=== PATIENT | female | born 1955 | race Caucasian/White ===

== ENCOUNTER → 2016-07-20 | Outpatient (CLI) | payer BC ==
[~2016-07-20] MED LIST: AFRIN 15 ML15 ML NS; ALLOPURINOL100 MG PO; AMOXICILLIN 8751 TAB PO; AMOXICILLIN/CLA1 TA1 PO; ASPIRIN 32325 MG/TA1 PO; ASPIRIN 32325 MG/TAB PO; COLACE 100100 MG/CAP PO; ELDERBERRY JUICE; FE-TABS325 MG PO; FLEET ENEMA 13135 ML RC; FLONASE NASAL S16 GM NS; FLONASEALLERGY NS; FOLIC ACID 40400 MCG PO; HUMALOG100 U/ML SC; HUMALOG100 U/ML SQ; HYDROCODONE BIT1 TA3 PO; LASIX 40MG TABL40 MG PO; LASIX40 MG PO; LEVEMIR100 U/ML SC; LEVEMIR100 U/ML SQ; LISINOPRIL10 MG PO; LORTAB 5/500 501 TAB PO; LOW DOSE ASPIRI81 MG PO; METAMUCIL3.4 GM/DOS PO; METFORMIN500 MG PO; MIRALAX PA17 GM/Dose PO; NAPROSYN500 MG PO; NASAL SPRAY 3030 M1 NS; NOLVADEX20 MG PO; NORCO 325 MG-7.1 TAB PO; PERCOCET 325 MG1 TA2 PO; SERTRALINE50 MG PO; STOOL SOFTENER100 M1 PO; SYMBICORT1 AE1 IH; TOUJEO300 U/ML SQ; ULTRAM 50MG TAB50 MG; ULTRAM 50MG TAB50 MG PO; VALIUM 5MG T5 MG/TAB PO; VALIUM5 MG PO; VENTOLIN0.09 MG IH; VITAMIN C PO; VITAMIN C500 MG PO; VITAMIN E28000 IU PO; ZESTRIL 10MG10 MG PO; ZOLOFT 50MG50 MG PO; ZYRTEC 10MG10 MG PO
== END ==
LOC: MC.RAD 10:40
DX: Z12.31 Encounter for screening mammogram for malignant neoplasm of breast (principal); D24.2 Benign neoplasm of left breast; D24.1 Benign neoplasm of right breast; Z85.3 Personal history of malignant neoplasm of breast

== ENCOUNTER → 2016-11-18 | Outpatient (CLI) | payer BC ==
[~2016-11-18] VITALS: Ht 162.6 cm; Wt 149.5 kg
[2016-11-18 10:22] VITALS: BP 177/87; PULSE 80
[2016-11-18 11:35] VITALS: BP 162/72; PULSE 82
== END ==
LOC: COL.RAD 11-12 10:00
DX: M51.9 Unspecified thoracic, thoracolumbar and lumbosacral intervertebral disc disorder (principal)
CPT/HCPCS: J3301

== ENCOUNTER → 2017-01-08 | Outpatient (CLI) | payer BC ==
[~2017-01-08] VITALS: Ht 162.6 cm; Wt 147.0 kg
[2017-01-08 10:25] VITALS: BP 160/91; PULSE 86
[2017-01-08 11:15] VITALS: BP 158/94; PULSE 81
== END ==
LOC: COL.RAD 10:00
DX: M51.9 Unspecified thoracic, thoracolumbar and lumbosacral intervertebral disc disorder (principal)
CPT/HCPCS: J3301; Q9965

== ENCOUNTER → 2022-08-03 | Outpatient (CLI) | payer BC, MEDICARE ==
[~2022-08-03] MED LIST changes: +DEMADEX100 MG PO
[2022-08-03 15:47] LABS: ALBUMIN 3.6 gm/dL (3.4-4.8); BILIRUBIN,TOTAL 0.9 mg/dL (0.2-1.2); CALCIUM 9.6 mg/dL (8.4-10.2); CREATININE, serum 1.33 mg/dL (0.57-1.11); POTASSIUM 4.8 mmol/L (3.5-4.5); TOTAL PROTEIN 7.4 gm/dL (6.2-8.1)
== END ==
LOC: COL.LAB 15:08
PROVIDERS: Family Medicine
DX: I50.41 Acute combined systolic (congestive) and diastolic (congestive) heart failure (principal)

== ENCOUNTER → 2022-08-07 | Outpatient (CLI) | payer BC ==
[~2022-08-07] MED LIST changes: +IMDUR 60MG60 MG/TAB PO; +LIPITOR 80MG80 MG PO; +PLAVIX 75MG TAB75 MG PO; +PROTONIX 40MG T40 MG PO; +TOPROL XL 25MG25 MG PO
== END ==
LOC: COL.VAS 12:00
DX: I50.9 Heart failure, unspecified (principal)

== ENCOUNTER → 2023-12-15 | Outpatient (CLI) | payer BC ==
[~2023-12-15] VITALS: Ht 160 cm; Wt 110.0 kg
[~2023-12-15] MED LIST changes: +DEMADEX 20MG20 M1 PO; +EX-LAX15 MG PO; +INDOCIN 25MG CA25 MG PO; +MONOKET10 MG PO; +PLAQUENIL 200M200 MG PO; +SINEX NS; +SOMA 350MG350 MG/TAB PO; +STOOL SOFTENER; +TRESIBA FL100 UNIT/1 SQ; +TRESIBA100 UNIT/1 SQ; +Triamcinolone 40 MG/ML 1 ML VIAL IJ SCH; +VICKS SINEX PO; +ZANAFLEX 4MG TAB4 MG PO; +ZANAFLEX CAPSULE4 MG PO; +ZESTRIL 20MG TA20 MG PO; +[UNRECOGNIZED DRUG - OTHER]
[2023-12-15 09:20] VITALS: BP 170/100; PULSE 77; TEMP 97.9
[2023-12-15 10:49] VITALS: BP 180/101; PULSE 76
[2023-12-15 11:09] VITALS: BP 165/77
--- NOTE | 2023-12-15 11:12 | NUR ---
PATIENT SAYS HER RIGHT LEG FEELS NUMB. SHE HAS EATEN A MUFFIN AND HAD AN ORANGE JUICE.
--- NOTE | 2023-12-15 11:41 | NUR ---
PATIENT IS NOW ABLE TO FEEL HER LEGS AND HAS DEMONSTRATED ABILITY TO TALK SEVERAL STEPS. PATIENT SAYS SHE WOULD LIKE TO LEAVE NOW. PATIENT'S IS HERE WITH HER. PATIENT SAYS THAT HER WALKER IS IN HER VEHICLE AND THAT SHE WALKS EVEN BETTER WITH HER WALKER. PATIENT TAKEN DOWN TO HER PERSONAL VEHICLE VIA WHEELCHAIR WITH ALL OF HER ITEMS AND PAPERWORK. PATIENT'S DRIVING. PATIENT ABLE TO GET INTO THE VEHICLE WITHOUT ASSISTANCE FROM NURSE OF . ALL NEEDS MET.
== END ==
LOC: COL.RAD 09:08
DX: M51.36 Other intervertebral disc degeneration, lumbar region (principal); D64.9 Anemia, unspecified
CPT/HCPCS: J0665; J3301

== ENCOUNTER → 2024-04-06 | Outpatient (CLI) | payer BC ==
[~2024-04-06] MED LIST changes: +KAPSPARGO SPRIN25 MG PO; +PRILOTC PO; -Triamcinolone 40 MG/ML 1 ML VIAL IJ SCH; +ZYLOPRIM 300MG300 MG PO
== END ==
LOC: MC.RAD 07:45
DX: Z12.31 Encounter for screening mammogram for malignant neoplasm of breast (principal)